=== PATIENT | female | born 1985 | race Caucasian/White ===

== ENCOUNTER 2021-12-28 15:36 | Outpatient (CLI) | payer OTHER, SELFPAY ==
--- NOTE | 2021-12-28 16:00 | CRLHL7_ITS ---
For Patients: As a result of the Century Cures Act, medical imaging exams and procedure reports are released immediately into your electronic medical record. You may view this report before your referring provider. If you have questions, please contact your health care provider. INDICATION: PELVIC PAIN, IUD IN PLACE COMPARISON: none TECHNIQUE: 2D yoon scale and color Doppler images were acquired of the pelvis using a transabdominal and transvaginal approach. Power Doppler evaluation of both ovaries performed. FINDINGS: Sonographic images demonstrate a normal size and smooth outer contour of the uterus. Uterus measures 8.3 cm in length by 4.1 cm in AP diameter by 4.9 cm in transverse dimension. The myometrium has a normal uniform echotexture. The endometrial lining appears measures 5 mm in composite thickness. IUD is present. The right ovary measures 3.4 x 1.7 x 2.2 cm in size and the left ovary measures 3.3 x 1.6 x 2.1 cm. The ovaries demonstrate normal arterial and venous blood flow on color Doppler analysis. There are no suspicious fluid collections within the cul-de-sac. Normal power Doppler evaluation of both ovaries. No torsion. IMPRESSION: Intrauterine device in good position within the endometrial canal. Normal ovaries. No evidence of torsion. Dictated by Oj Fink MD @ 12/29/2021 9:24:02 AM (Electronically Signed)
== END 2021-12-28 15:37 | disposition home or self-care (01) ==
LOC: US 15:37
PROVIDERS: Visit Provider Registered Nurse
DX: R10.2 Pelvic and perineal pain (principal)
CPT/HCPCS: 76830; 76856; 87491; 87591; 93976

== ENCOUNTER 2024-02-28 14:06 | Outpatient (CLI) | payer BC, SELFPAY ==
[2024-03-01 17:41] LABS: HPV Source Cervix; HPV, High Risk by TMA Detected
[2024-03-03 05:37] LABS: HPV Genotype 16 by TMA Not Detected; HPV Genotype 18/45 by TMA Not Detected; HPVG Source Cervix
== END 2024-02-28 14:07 | disposition home or self-care (01) ==
PROVIDERS: Visit Provider Advanced Practice Midwife
DX: N89.8 Other specified noninflammatory disorders of vagina (principal); Z12.4 Encounter for screening for malignant neoplasm of cervix
CPT/HCPCS: 87624; 87625; 88141; 88142

== ENCOUNTER 2024-02-29 07:31 | Outpatient (CLI) | payer BC, SELFPAY | END 2024-02-29 07:32 | disposition home or self-care (01) | LOC: NFLDREF 03-08 07:36 | PROVIDERS: Visit Provider Advanced Practice Midwife | DX: E78.5 Hyperlipidemia, unspecified (principal); Z86.32 Personal history of gestational diabetes; Z13.1 Encounter for screening for diabetes mellitus | CPT/HCPCS: 80061; 82947 ==